=== PATIENT | male | born 1985 | race American Indian/Alaskan Native ===

== ENCOUNTER 2020-08-05 18:14 | Emergency (ER) | payer OTHER ==
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
[2020-08-05 21:35] VITALS: BP 129/78
== END 2020-08-05 21:39 | disposition home or self-care (01) ==
LOC: ED 18:14
DX: S62.613A Displaced fracture of proximal phalanx of left middle finger, initial encounter for closed fracture (principal); Z79.899 Other long term (current) drug therapy; V49.49XA Driver injured in collision with other motor vehicles in traffic accident, initial encounter; Y92.410 Unspecified street and highway as the place of occurrence of the external cause; Y93.89 Activity, other specified; Y99.8 Other external cause status